=== PATIENT | male | born 1950 ===

== ENCOUNTER 2017-06-05 10:41 | Emergency (ER) | payer MEDICARE ==
[2017-06-05 10:58] VITALS: RESP 18; O2SAT 99
[2017-06-05 12:13] LABS: URINE BILIRUBIN NEGATIVE (NEGATIVE); URINE BLOOD NEGATIVE (NEGATIVE); URINE CLARITY Clear (Clear); URINE COLOR Yellow (YELLOW); URINE GLUCOSE (UA) 3+ mg/dL (Normal); URINE LEUKOCYTE ESTERASE NEG Leu/uL (Negative); URINE NITRATE NEGATIVE (NEGATIVE); URINE PROTEIN NEGATIVE (NEGATIVE); URINE UROBILINOGEN NORMAL mg/dL (0.2-1.0)
[2017-06-05 12:19] LABS: BASO % 0.7 % (0.0-2.0); EOS # 0.1 K/uL (0.0-0.7); EOS % 0.9 % (0.0-4.0); HEMOGLOBIN 13.6 g/dL (12.0-18.0); LYMPH # 1.1 K/uL (1.0-4.3); LYMPH % 18.1 % (20.0-40.0); MEAN CORPUSCULAR HEMOGLOBIN 30.1 pg (27.0-31.0); MONO # 0.6 K/uL (0.0-0.8); MONO % 9.3 % (0.0-10.0); NEUT # 4.4 K/uL (1.8-7.0); RBC 4.53 Mil/uL (4.40-5.90); RED CELL DISTRIBUTION WIDTH 13.5 % (11.5-14.5); WHITE BLOOD COUNT 6.2 K/uL (4.8-10.8)
[2017-06-05 12:20] LABS: MEAN CELL VOLUME 85.9 fL (80.0-94.0)
[2017-06-05 12:25] LABS: ALB/GLOB RATIO 1.3 (1.0-2.1); ALBUMIN 4.1 g/dL (3.5-5.0); ALT/SGPT 30 U/L (21-72); AST/SGOT 20 U/L (17-59); BLOOD UREA NITROGEN 15 mg/dL (9-20); GFR AFRICAN-AMERICAN > 60; GFR NON-AFRICAN AMERICAN > 60; LIPASE 62 U/L (23-300)
--- NOTE | 2017-06-05 12:57 | RAD ---
Abdomen two views History: Abdominal pain. Evaluate for obstruction. Comparison: None available. Findings: Moderate to severe fecal retention in the colon. Relative paucity of small bowel gas. Degenerative changes in the spine and bilateral hips. Productive change off the greater trochanters and right inferior pubic bone. Surgical clips project over the right lower pelvis. Calcified phleboliths in the pelvis. Impression: Nonspecific bowel gas pattern with moderate to severe fecal retention in the colon as well as relative paucity of small bowel gas.
--- NOTE | 2017-06-05 13:10 | C.PDOC ---
History Of Present Illness 67 y/o male whose past medical history includes HTN and kidney stones, presents to the ED complaining of pain to prostate area and reports having difficulty with urination. He also reports having rash on left thigh for a couple of days. Patient denies hematuria, dysuria, nausea, vomiting, diarrhea, fever, or other complaints. Chief Complaint (Nursing): Male Genitourinary History Per: Patient History/Exam Limitations: no limitations Onset/Duration Of Symptoms: Days Current Symptoms Are (Timing): Still Present Associated Symptoms: denies: Fever, Nausea, Diarrhea Alleviating Factors: None Recent travel outside of the [place]: No Past Medical History Reviewed: Historical Data, Nursing Documentation, Vital Signs Vital Signs: Last Vital Signs Temp 98.0 F 06/05/17 14:05 Pulse 67 06/05/17 14:05 Resp 18 06/05/17 14:05 BP 155/80 H 06/05/17 14:05 Pulse Ox 99 06/05/17 14:05 - Medical History PMH: Depression, HTN, Kidney Stones Family History: States: No Known Family Hx - Social History Hx Alcohol Use: Yes Hx Substance Use: No - Immunization History Hx Tetanus Toxoid Vaccination: No Hx Influenza Vaccination: No Hx Pneumococcal Vaccination: No Review Of Systems Except As Marked, All Systems Reviewed And Found Negative. Constitutional: Negative for: Fever Cardiovascular: Negative for: Chest Pain Genitourinary: Negative for: Dysuria, Hematuria Skin: Positive for: Rash (left thigh) Physical Exam - Physical Exam Appears: Well, Non-toxic, No Acute Distress Skin: Normal Color, Warm, Dry, Rash (lateral aspect of left thigh scant vesicular rash not tender or draining) Head: Atraumatic, Normacephalic Eye(s): bilateral: Normal Inspection, PERRL, EOMI Cardiovascular: Rhythm Regular Respiratory: Normal Breath Sounds Gastrointestinal/Abdominal: Normal Exam, No Tenderness, No Distention, No Guarding, No Rebound ED Course And Treatment - Laboratory Results Result Diagrams: 06/05/17 12:08 06/05/17 12:08 O2 Sat by Pulse Oximetry: 99 (room air) Pulse Ox Interpretation: Normal Medical Decision Making Medical Decision Making: Impression: 67 y/o male with ateral aspect of left thigh scant vesicular rash not tender or draining Plan: -- Labs -- Reassess and disposition Progress Notes: Disposition - Disposition Referrals: Sulaiman Cedillo MD [Staff Provider] - Disposition: HOME/ ROUTINE Disposition Time: 13:10 Condition: GOOD Additional Instructions: Thank you for letting us take care of you today. The emergency medical care you received today was directed at your acute symptoms. If you were prescribed any medication, please fill it and take as directed. It may take several days for your symptoms to resolve. Return to the Emergency Department if your symptoms worsen, do not improve, or if you have any other problems. Please contact your doctor or call one of the physicians/clinics you have been referred to that are listed on the Patient Visit Information form that is included in your discharge packet. Bring any paperwork you were given at discharge with you along with any medications you are taking to your follow up visit. Our treatment cannot replace ongoing medical care by a primary care provider (PCP) outside of the emergency department. Thank you for allowing the [facility] team to be part of your care today. Follow up with your primary doctor in 2-3 days for re-evaluation and further management. Prescriptions: Docusate Sodium [Dulcolax Stool Softener] 100 mg PO BID #20 capsule predniSONE [Prednisone] 40 mg PO DAILY #10 tab Instructions: Constipation in Adults, High Fiber Diet Forms: [employer] ([place]) - Clinical Impression Clinical Impression: Constipation - Scribe Statement The provider has reviewed the documentation as recorded by the Scribe Scribe Attestation: Theodora Schmidt MD Scribe Attestation: All medical record entries made by the Scribe were at my direction and personally dictated by me. I have reviewed the chart and agree that the record accurately reflects my personal performance of the history, physical exam, medical decision making, and the department course for this patient. I have also personally directed, reviewed, and agree with the discharge instructions and disposition.
[2017-06-05 14:24] VITALS: BP 155/80; PULSE 67; TEMP 98
== END 2017-06-05 14:43 | disposition home or self-care (01) ==
LOC: C.ER 10:41
DX: K59.00 Constipation, unspecified (principal); I10 Essential (primary) hypertension

== ENCOUNTER 2017-06-07 08:46 | Emergency (ER) | payer MEDICARE ==
[2017-06-07 09:12] VITALS: RESP 20; TEMP 97.8; O2SAT 98
--- NOTE | 2017-06-07 11:24 | C.PDOC ---
History Of Present Illness 67 year old male presents to the ED for evaluation of a painful rash to his left posterior thigh. Patient was seen in the ED for the same symptom several days ago and was prescribed Prednisone. Patient notes the rash has worsened and he now has pain to his rectal area. Patient denies fever, chills, throat swelling sensation, cough, shortness of breath, contact with new foods/ products. Time Seen by Provider: 06/07/17 09:49 Chief Complaint (Nursing): Abnormal Skin Integrity History Per: Patient History/Exam Limitations: no limitations Onset/Duration Of Symptoms: Days Current Symptoms Are (Timing): Still Present Location Of Injury: Left: Thigh, Posterior: Thigh Quality Of Symptoms: Painful Recent travel outside of the [place]: No Additional History Per: Patient (reports last bowel movement was this morning and it was normal.) Past Medical History Reviewed: Historical Data, Nursing Documentation, Vital Signs Vital Signs: Last Vital Signs Temp 97.8 F 06/07/17 11:52 Pulse 73 06/07/17 11:52 Resp 20 06/07/17 11:52 BP 138/83 06/07/17 11:52 Pulse Ox 98 06/09/17 14:48 - Medical History PMH: Depression, HTN, Kidney Stones Surgical History: No Surg Hx Family History: States: Unknown Family Hx - Social History Hx Alcohol Use: Yes Hx Substance Use: No - Immunization History Hx Tetanus Toxoid Vaccination: No Hx Influenza Vaccination: No Hx Pneumococcal Vaccination: No Review Of Systems Constitutional: Negative for: Fever, Chills ENT: Negative for: Throat Swelling Skin: Positive for: Rash (painful, to left posterior thigh ) Physical Exam - Physical Exam Appears: Non-toxic, No Acute Distress Skin: Warm, Dry, Rash (crusting vesicles along dermatomal distribution to left posterior thigh/buttocks region extending near rectum ) Head: Atraumatic, Normacephalic Eye(s): bilateral: Normal Inspection Oral Mucosa: Moist Neck: Supple Chest: Symmetrical, No Deformity, No Tenderness Cardiovascular: Rhythm Regular, No Friction Rub, No Murmur Respiratory: Normal Breath Sounds, No Rales, No Rhonchi, No Wheezing Gastrointestinal/Abdominal: Soft, No Tenderness, No Guarding, No Rebound Rectal: Normal Exam Back: Normal Inspection, No CVA Tenderness, Other ([employer] Jose Roberto Rodriguez RN) Male Genital: Normal Inspection, No Testicular Tenderness, No Testicular Swelling, No Inguinal Tenderness, No Inguinal Swelling, No Scrotal Swelling Extremity: Normal ROM, Capillary Refill (less than 2 seconds ), No Swelling Neurological/Psych: Oriented x3, Normal Speech, Normal Cognition, Normal Motor, Normal Sensation Gait: Steady ED Course And Treatment O2 Sat by Pulse Oximetry: 98 (on RA) Pulse Ox Interpretation: Normal Medical Decision Making Medical Decision Making: Progress: Ultram PO and Zovirax PO administered. The exam appears to be herpes zoster with post-herpetic pain. Disposition - Disposition Referrals: Sulaiamn Cedillo MD [Staff Provider] - Disposition: HOME/ ROUTINE Disposition Time: 11:21 Condition: GOOD Additional Instructions: Follow up with the medical doctor within 1-2 days. Return if worsened. Prescriptions: Acyclovir [Zovirax] 800 mg PO 5XD #34 tab traMADol [Ultram] 50 mg PO Q6 PRN #20 tab PRN Reason: Pain Instructions: Shingles (DC) Forms: [employer] ([place]) - POA Present On Arrival: None - Clinical Impression Clinical Impression: Herpes zoster - PA / PET RESORT CONCIERGE / Resident Statement MD/DO has reviewed & agrees with the documentation as recorded. - Scribe Statement The provider has reviewed the documentation as recorded by the Scribe (Sugar Eli) All medical record entries made by the Scribe were at my direction and personally dictated by me. I have reviewed the chart and agree that the record accurately reflects my personal performance of the history, physical exam, medical decision making, and the department course for this patient. I have also personally directed, reviewed, and agree with the discharge instructions and disposition.
[2017-06-07 11:52] VITALS: BP 138/83; PULSE 73
== END 2017-06-07 11:56 | disposition home or self-care (01) ==
LOC: C.ER 08:46
DX: B02.9 Zoster without complications (principal); I10 Essential (primary) hypertension

== ENCOUNTER 2018-03-10 17:04 | Emergency (ER) | payer MEDICARE ==
[2018-03-10 17:31] VITALS: BMI 26.5
--- NOTE | 2018-03-10 18:27 | C.PDOC ---
History Of Present Illness 68 y/o male presents to the ED complaining of intermittent constipation and diarrhea for 2 months, current episode lasting 4 days. He reports having multiple watery bowel movements, however none since this morning. Previously, patient had normal bowel habits. He describes having associated bloating, subjective fever. Denies chills, bloody stool, nausea, or vomiting. Patient also reports frequent travel to [facility], and most recently returned home yesterday. While in [facility] he was seen on 02/21/18 for similar complaints, had an ultrasound showing gall stones, and was prescribed Ibuprofen, Simethicone, and Omeprazole. Patient states the medication provided temporary relief. No sick contacts. <Val Hooks - Last Filed: 03/10/18 23:47> History Per: Patient History/Exam Limitations: no limitations Onset/Duration Of Symptoms: Days (x4), Intermittent Episodes Current Symptoms Are (Timing): Still Present Quality Of Discomfort: "Pain" <Val Hooks - Last Filed: 03/10/18 23:47> <Ольга Dasilva - Last Filed: 03/11/18 15:56> Time Seen by Provider: 03/10/18 18:14 Chief Complaint (Nursing): Abdominal Pain Past Medical History Reviewed: Historical Data, Nursing Documentation, Vital Signs Vital Signs: Last Vital Signs Temp 98.2 F 03/10/18 17:31 Pulse 80 03/10/18 17:31 Resp 18 03/10/18 17:31 BP 118/78 03/10/18 17:31 Pulse Ox 98 03/10/18 17:31 - Medical History PMH: Depression, Gall Bladder Disease, HTN, Kidney Stones, Chronic Kidney Disease Family History: States: Unknown Family Hx - Social History Hx Alcohol Use: Yes Hx Substance Use: No - Immunization History Hx Tetanus Toxoid Vaccination: No Hx Influenza Vaccination: No Hx Pneumococcal Vaccination: No <JesseeVal - Last Filed: 03/10/18 23:47> Vital Signs: Last Vital Signs Temp 98.9 F 03/10/18 23:50 Pulse 88 03/10/18 23:50 Resp 20 03/10/18 23:50 BP 118/72 03/10/18 23:50 Pulse Ox 97 03/10/18 23:50 <Ольга Dasilva - Last Filed: 03/11/18 15:56> Review Of Systems Except As Marked, All Systems Reviewed And Found Negative. Constitutional: Positive for: Fever (subjective). Negative for: Chills Gastrointestinal: Positive for: Diarrhea, Constipation. Negative for: Nausea, Vomiting, Hematochezia Genitourinary: Negative for: Dysuria, Hematuria Skin: Negative for: Rash Neurological: Negative for: Headache, Dizziness <Val Hooks - Last Filed: 03/10/18 23:47> Physical Exam - Physical Exam Appears: Non-toxic, No Acute Distress Skin: Normal Color, Warm, Other (Good skin turgor) Head: Atraumatic, Normacephalic Eye(s): bilateral: PERRL, EOMI, Other (Sunken eyes) Oral Mucosa: Moist Neck: Normal ROM Chest: Symmetrical Cardiovascular: Rhythm Regular, No Murmur Respiratory: Normal Breath Sounds, No Rales, No Rhonchi, No Wheezing, Other (NARD) Gastrointestinal/Abdominal: Soft, No Tenderness, No Distention, No Guarding, No Rebound Back: No CVA Tenderness, No Vertebral Tenderness Extremity: Bilateral: Atraumatic, Normal Color And Temperature Neurological/Psych: Oriented x3, Normal Speech <Val Hooks - Last Filed: 03/10/18 23:47> ED Course And Treatment - Laboratory Results Result Diagrams: 03/10/18 19:00 03/10/18 19:00 O2 Sat by Pulse Oximetry: 98 (RA) Pulse Ox Interpretation: Normal - CT Scan/US CT abd/pelvis Other Rad Studies (CT/US): Read By Radiologist, Radiology Report Reviewed CT/US Interpretation: EXAM: CT Abdomen without IV contrast. CLINICAL HISTORY: Epigastric pain. TECHNIQUE: Axial computed tomography images of the abdomen and pelvis without intravenous contrast. 0.00 mGy-cm. CONTRAST: Without. COMPARISON: None provided. FINDINGS: LUNG BASES: Heart is normal size. The pulmonary bases are well-aerated. LIVER: Unremarkable. GALLBLADDER AND BILE DUCTS: The gallbladder appears within normal limits. No radioopaque gallstones are seen. No biliary ductal dilatation is evident. PANCREAS: Unremarkable. SPLEEN: Unremarkable. ADRENAL GLANDS: Unremarkable. KIDNEYS, URETERS, AND BLADDER: The kidneys appear within normal limits. There is no hydronephrosis or hydroureter. No urinary calculi are seen. STOMACH AND BOWEL: Moderate wall thickening of sigmoid colon without inflammatory changes. Nonobstructive bowel gas pattern. APPENDIX: No evidence of acute appendicitis on CT examination. PERITONEUM: No free fluid. No free air. LYMPH NODES: No lymphadenopathy is evident. VASCULATURE: No evidence of abdominal aortic aneurysm. BONES: No aggressive appearing osseous lesion. No acute osseous pathology evident. IMPRESSION: 1. Moderate wall thickening of sigmoid colon without inflammatory changes. 2. Heart is normal size. The pulmonary bases are well-aerated. 3. Nonobstructive bowel gas pattern. . Electronically signed on Mar 10, 2018 11:06:22 PM EST by: Adam Garnica M.D., Certified by ABR <Val Hooks - Last Filed: 03/10/18 23:47> - Laboratory Results Result Diagrams: 03/10/18 19:00 03/10/18 19:00 <Ольга Dasilva - Last Filed: 03/11/18 15:56> Progress - Re-Evaluation Re-evaluation Note: 03/10/18 20:21 FEELS BETTER, IVF IN PROGRESS. +UO. PENDING CT 03/10/18 23:09 2 BM IN ER. APPEARS COMFORTABLE. - Data Reviewed Data Reviewed: Lab, Diagnostic imaging, Old records <Val Hooks - Last Filed: 03/10/18 23:47> Medical Decision Making Medical Decision Making: Impression: 68 y/o M with recurrent diarrhea and constipation, associated with bloating and subjective fever Initial Plan: --CMP --Lipase --CBC --UA --NS IV fluids --CT Abdomen/Pelvis with IV contrast <Val Hooks - Last Filed: 03/10/18 23:47> Disposition Counseled Patient/Family Regarding: Studies Performed, Diagnosis, Need For Followup, Rx Given - Disposition Disposition Time: 23:10 <JesseeVal - Last Filed: 03/10/18 23:47> <Ольга Dasilva - Last Filed: 03/11/18 15:56> - Disposition Referrals: YOUR,GI DOCTOR [Other] Disposition: HOME/ ROUTINE Condition: IMPROVED Prescriptions: Ciprofloxacin [Cipro] 1 tab PO BID #14 tab Metronidazole [Flagyl] 500 mg PO BID #14 tab Instructions: Diarrhea and Traveler's Diarrhea, Adult (DC) Forms: [employer] ([place]an) - Clinical Impression Clinical Impression: Abdominal colic, Diarrhea - Scribe Statement The provider has reviewed the documentation as recorded by the Scribe Sue Royal Provider Attestation: All medical record entries made by the Dorian were at my direction and personally dictated by me. I have reviewed the chart and agree that the record accurately reflects my personal performance of the history, physical exam, medical decision making, and the department course for this patient. I have also personally directed, reviewed, and agree with the discharge instructions and d isposition. <Val Hooks - Last Filed: 03/10/18 23:47> Addendum Addendum: 03/11/18 15:[address] discussed with the patient. Will send results to PMD on Tuesday. <Ольга Dasilva - Last Filed: 03/11/18 15:56>
[2018-03-10] MEDS ORDERED: Sodium Chloride 0.9% 1,000 ML IV ONE (18:52)
[2018-03-10 19:03] LABS: BASO % 0.2 % (0.0-2.0); EOS % 0.7 % (0.0-4.0); HEMOGLOBIN 13.9 g/dL (12.0-18.0); LYMPH # 1.5 K/uL (1.0-4.3); LYMPH % 26.6 % (20.0-40.0); MEAN CELL VOLUME 85.7 fL (80.0-94.0); MEAN CORPUSCULAR HEMOGLOBIN 29.3 pg (27.0-31.0); MEAN CORPUSCULAR HGB CONC 34.2 g/dL (33.0-37.0); MEAN PLATELET VOLUME 7.8 fL (7.2-11.7); MONO # 1.2 K/uL (0.0-0.8); MONO % 20.6 % (0.0-10.0); NEUT % 51.9 % (50.0-75.0); PLATELET COUNT 403 K/uL (130-400); RBC 4.76 Mil/uL (4.40-5.90); RED CELL DISTRIBUTION WIDTH 12.8 % (11.5-14.5); WHITE BLOOD COUNT 5.8 K/uL (4.8-10.8)
[2018-03-10] MEDS ORDERED: Sodium Chloride 0.9% 1,000 ML ONE (19:04)
[2018-03-10 19:20] LABS: ALB/GLOB RATIO 1.3 (1.0-2.1); ALBUMIN 4.1 g/dL (3.5-5.0); CALCIUM 9.2 mg/dl (8.6-10.4)
[2018-03-10 19:31] LABS: BANDS 3 % (0-2); EOSINOPHIL 1 % (0-4); LYMPHOCYTE 31 % (20-40); MONOCYTE 16 % (0-10); NEUTROPHIL 49 % (50-75); PLATELET ESTIMATE INCREASED (NORMAL); TOTAL CELLS COUNTED 100
[2018-03-10 20:19] LABS: VENOUS BLOOD GAS BASE EXCESS -10.9 mmol/L (0.0-2.0); VENOUS BLOOD GAS PCO2 65 mmHg (40-60); VENOUS BLOOD GAS PO2 31 mm/Hg (30-55); VENOUS BLOOD PH 7.09 (7.32-7.43)
[2018-03-10 20:39] LABS: SQUAMOUS EPITHIAL 4 /hpf (0-5); URINE BACTERIA OCC (<OCC); URINE BILIRUBIN 1+ (NEGATIVE); URINE BLOOD 1+ (NEGATIVE); URINE CLARITY Hazy (Clear); URINE COLOR Amber (YELLOW); URINE GLUCOSE (UA) 1+ mg/dL (Normal); URINE HYALINE CAST >20 /lpf (0-2); URINE LEUKOCYTE ESTERASE NEG Leu/uL (Negative); URINE PROTEIN 3+ mg/dL (NEGATIVE); URINE UROBILINOGEN NORMAL mg/dL (0.2-1.0)
[2018-03-10] MEDS ORDERED: Iohexol 240 (50 ml) PO ONE (21:04)
[2018-03-10] MEDS ORDERED: Iodixanol 320 MG/ML 100 ML BOTTLE IV ONE (21:05)
[2018-03-10] MEDS ORDERED: Iohexol 240 (50 ml) ONE (21:12)
[2018-03-10 22:42] VITALS: RESP 20
[2018-03-10] MEDS ORDERED: Atropine-Diphenoxylate 0.025-2.5 mg Tab ONE (23:31)
[2018-03-11 00:26] VITALS: BP 118/72; PULSE 88; TEMP 98.9; O2SAT 97
--- NOTE | 2018-03-11 08:55 | CT ---
Date of service: 03/10/2018 PROCEDURE: CT Abdomen and Pelvis without intravenous contrast HISTORY: Abdominal pain. COMPARISON: 10/17/2012 TECHNIQUE: Multiple contiguous axial images were performed through the abdomen and pelvis without the use of intravenous contrast. Subsequently, sagittal and coronal reformatted images were obtained.. Radiation dose: Total exam DLP = 969.17 mGy-cm. This CT exam was performed using one or more of the following dose reduction techniques: Automated exposure control, adjustment of the mA and/or kV according to patient size, and/or use of iterative reconstruction technique. FINDINGS: LOWER THORAX: Ground-glass 3 millimeter nodule within the anterior aspect of the right lung on series 3, image 1. Pleural-based intra fissural nodule/lymph node measuring 4 millimeters on series 3, image 15 in the right lung. Scattered atelectasis within the right lung with a 2 millimeter subpleural nodular density in the anterior aspect of the right middle lobe. 6 millimeter nodular density seen within the anterior aspect of the right middle lobe on series 3, image 16. Coronary calcifications and or stents. LIVER: Unremarkable. No gross lesion or ductal dilatation. GALLBLADDER AND BILE DUCTS: Unremarkable. PANCREAS: Fatty atrophy of the pancreas. SPLEEN: Unremarkable. ADRENALS: Nodular thickening of the adrenal glands. KIDNEYS AND URETERS: 3 millimeter nonobstructive calculus in the midpole of the left kidney. 1.5 centimeter peripelvic cyst in the lower pole of the left kidney. VASCULATURE: .Unremarkable. No aortic aneurysm. Aortic atherosclerotic calcification or mural plaque present. BOWEL: Diffuse thickening of the colon consistent with a colitis, possibly secondary to acute infectious and or inflammatory changes. Clinical correlation. APPENDIX: Mildly thickened, likely reactive, distended with contrast in the proximal and midportion. Width measures up to 8 millimeters. Clinical correlation PERITONEUM: Unremarkable. No free fluid. No free air. LYMPH NODES: Anterior to the body of the pancreas there is a heterogeneous focus measuring 5.7 x 2.2 centimeters of uncertain clinical etiology. This may represent focalized prominent lymphadenopathy. Correlation with contrast-enhanced CT scan and/or PET-CT scan may be helpful for further evaluation if clinically indicated. Milder shotty mesenteric and para dominant lymph nodes. BLADDER: Unremarkable. REPRODUCTIVE: Heterogeneous and prominent prostate with calcifications. BONES: Degenerative changes in the spine. OTHER FINDINGS: None. IMPRESSION: 1. Diffuse thickening of the colon consistent with a colitis, possibly secondary to acute infectious and or inflammatory changes. Clinical correlation. 2. Anterior to the body of the pancreas there is a heterogeneous focus measuring 5.7 x 2.2 centimeters of uncertain clinical etiology. This may represent focalized prominent lymphadenopathy. Additional etiologies not excluded. Correlation with contrast-enhanced CT scan and/or PET-CT scan may be helpful for further evaluation if clinically indicated. A preliminary report was generated at 11:06 p.m. on 03/10/[address] Adam Garnica from [facility].
== END 2018-03-10 23:50 | disposition home or self-care (01) ==
LOC: C.ER 17:04
DX: R19.7 Diarrhea, unspecified (principal); R10.84 Generalized abdominal pain; I12.9 Hypertensive chronic kidney disease with stage 1 through stage 4 chronic kidney disease, or unspecified chronic kidney disease; N18.9 Chronic kidney disease, unspecified; Z87.442 Personal history of urinary calculi; Z87.891 Personal history of nicotine dependence
CPT/HCPCS: 74176; 80053; 81001; 82803; 82948; 83690; 85025; 87040; 87045; 87086; 99285; J7030; Q9966